=== PATIENT | male | born 1975 | race Two or more races ===

== ENCOUNTER 2018-08-26 12:15 | Emergency (ER) | payer BC | END 2018-08-26 14:53 | disposition home or self-care (01) | LOC: FTE 12:15 | DX: S69.92XA Unspecified injury of left wrist, hand and finger(s), initial encounter (principal); W01.198A Fall on same level from slipping, tripping and stumbling with subsequent striking against other object, initial encounter; Y92.9 Unspecified place or not applicable | CPT/HCPCS: 29125; 73130-LT; 99283-25 ==